=== PATIENT | male | born 1985 | race Caucasian/White ===

== ENCOUNTER 2024-10-19 12:07 | Emergency (ER) | payer BC, SELFPAY ==
[2024-10-19 12:13] VITALS: BP 130/90
[2024-10-19 12:34] LABS: % Basophils 0.3 % (0-2); % Eosinophils 0.4 % (0-6); % Immature Granulocytes 0.3 % (0-0.5); % Lymphocytes 27.3 % (20.5-51.1); % Monocytes 5.9 % (1.7-9.3); % Neutrophils 65.8 % (42.2-75.2); Absolute Monocytes 0.4 10^3/uL (0.1-0.6); Absolute Neutrophils 4.7 10^3/uL (1.4-6.5); Hematocrit 39.9 % (39.0-52.0); Hemoglobin 13.6 g/dL (13.0-18.0); Mean Corp Hgb Conc. 34.1 g/dL (33.0-37.0); Mean Corpuscular Volume 88.1 fL (80.0-94.0); Mean Platelet Volume 13.2 fL (7.4-10.4); Nucleated Red Blood Cells % 0 % (-); Platelet Count 101 10^3/uL (130-400); Red Blood Cell Count 4.53 10^6/uL (4.70-6.10); Red Cell Dist. Width 12.4 % (11.5-14.5); White Blood Cell Count 7.2 10^3/uL (4.8-10.8)
[2024-10-19 12:39] LABS: ALT (SGPT) 39 U/L (0-50); AST (SGOT) 36 U/L (17-59); Albumin 4.7 g/dl (3.5-5.0); Alkaline Phosphatase 39 U/L (38-126); Blood Urea Nitrogen 17 mg/dl (9-20); Calcium 9.4 mg/dl (8.4-10.2); Carbon Dioxide 28 mmol/L (22-30); Chloride 100 mmol/L (98-107); Glucose 115 mg/dl (70-99); Potassium 3.7 mmol/L (3.5-5.1); Sodium 137 mmol/L (135-145); Total Bilirubin 0.3 mg/dl (0.2-1.3); Total Protein 7.1 g/dl (6.3-8.2); eGFR > 60.00
[2024-10-19 12:47] LABS: Troponin I < 0.012 ng/ml
[2024-10-19 13:00] VITALS: BP 125/77
--- NOTE | 2024-10-19 13:33 | ED.GENMED ---
History of Present Illness
General
Chief Complaint: Dizziness
Time Seen by Provider: 10/19/24 13:10
History of Present Illness
History of Present Illness:
39 yo male presents to the Emergency Department for evaluation of sudden onset dizziness and vomiting beginning this afternoon. Reports he was playing ('jumping around') with his son when the symptoms struck. Since that time has had waxing and
waning vertigo/vomiting symptoms. No headaches, fevers, neck pain, chest pain or SOB. Does endorse having several 'colds' in the past month. No speech difficulty or extremity weakness/paresthesias.
Past History
Past History
ED Past Medical History: Other (IBS)
ED Past Surgical History: None
Social History
Tobacco: Former smoker
Alcohol: Occasional
Personal:
Living: with family
Review of Systems
Review of Systems
Allergies reviewed?: Yes
All Other Systems: ROS reviewed and negative except as documented in HPI and ROS
Phy Exam
Physical Exam
Physical Exam:
GEN: Well appearing, NAD, WDWN
HEENT: Oral mucosa moist, no scleral icterus, no nasal congestion
Cardiac: Regular rate and rhythm
Lung: No respiratory distress, no tachypnea
MSK: No gross deformity or injuries
Skin: Good color, no pallor or jaundice, no rashes
Neuro: AO x3; CN II-XII grossly intact. BUE strength 5/5 in all mae, sensation intact and symmetric. BLE strength 5/5 in all mae, sensation intact and symmetric. R beating horizontal nystagmus with head tilt
Psych: Calm, cooperative
Course
Orders/Labs/Results
Orders:
Orders
10/19/24 12:12
Electrocardiogram (*1) Urgent
Reason for Study: Vertigo / Dizzy
EKG- Treatment ONCE
10/19/24 12:13
Complete Blood Count/With Diff Urgent
Comprehensive Metabolic Panel Urgent
Troponin I Urgent
10/19/24 13:39
diazePAM [Valium Injection] 5 mg IV NOW STA
10/19/24 15:16
Dexamethasone Sod Phosphate [Decadron] 10 mg IV NOW STA
Abnormal Lab Results
10/19/24
12:13
RBC 4.53 L 10^6/uL
(4.70-6.10)
Plt Count 101 L 10^3/uL
(130-400)
MPV 13.2 H fL
(7.4-10.4)
Glucose 115 H mg/dl
(70-99)
10/19/24 12:13
10/19/24 12:13
Vital Signs
Initial and Last Documented VS:
Initial Vital Signs
Temp Pulse Resp BP Pulse Ox
97.7 F 63 16 130/90 99
10/19/24 12:13 10/19/24 12:13 10/19/24 12:13 10/19/24 12:13 10/19/24 12:13
Last Documented Vital Signs
Temp Pulse Resp BP Pulse Ox
97.7 F 66 14 128/69 94
10/19/24 12:13 10/19/24 15:00 10/19/24 14:30 10/19/24 15:00 10/19/24 15:00
MDM/Problems Addressed
MDM/Problems Addressed:
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 Symptoms were dramatically improved after diazepam. He did have multiple recent URIs thus we will treat this as a possible viral
induced vestibular neuritis with steroids. No clinical signs concerning for central nervous system lesion
*Critical Care Note
Total Time (30-74mins, 75-104mins- exclusive of procedures): Not Applicable
ED Attending Note
-
Portions of this chart may have been created with voice recognition software.� Occasional wrong word or��sound alike� substitutions may have occurred due to the inherent limitations of voice recognition software.
Discharge Plan
Departure
Patient Disposition: Home (Routine Discharge)
Date of Disposition: 10/19/24
Time of Disposition: 15:16
Patient with high blood pressure during this ER visit?: No
Discharge Problem:
Acute vestibular neuritis
Instructions: Vertigo (a Type of Dizziness) (DC)
Prescriptions:
New
diazepam 5 mg tablet
5 mg PO TID PRN (Reason: vertigo) Qty: 10 0RF
methylprednisolone [Medrol (Darío)] 4 mg tablets,dose pack
See Rx Instructions .ROUTE .COMPLEX Qty: 21 0RF
Rx Instructions:
orally per package directions
Referrals:
Russ Hayden MD [Active] -
Yana Landaverde MD [Family Provider] -
Interventions
Interventions:
*Risk Screen - Suicide Last Done: 10/19/24 12:13
*General Assessment Last Done: 10/19/24 12:13
*Neglect/Abuse Screening Last Done: 10/19/24 12:13
*ED COVID-19 Vaccine History Last Done: 10/19/24 12:13
*Nursing Disposition Last Done: 10/19/24 15:41
ED- Neurological Assessment Last Done: 10/19/24 12:19
ED- Cardiac Assessment Last Done: 10/19/24 12:19
ED Swallowing Screen Last Done: 10/19/24 15:05
Discharge Date and Time
Discharge Date/Time: 10/19/24 15:42
Print Language: YEMENI
[2024-10-19] MEDS: VALIUM INJECTION 5 MG IV (13:47)
[2024-10-19 14:00] VITALS: BP 121/73
[2024-10-19 15:00] VITALS: BP 128/69
[2024-10-19] MEDS: DECADRON 10 MG IV (15:28)
== END 2024-10-19 15:42 | disposition home or self-care (01) ==
LOC: EMR 12:07
PROVIDERS: EMERGENCY PHYSICIAN Emergency Medicine; FAMILY PHYSICIAN Specialist
DX: H93.3X9 Disorders of unspecified acoustic nerve (principal); Z87.891 Personal history of nicotine dependence
CPT/HCPCS: 96374; 96375; 99284; 80053; 84484; 85025; 93005

== ENCOUNTER 2024-11-09 14:04 | Emergency (ER) | payer SELFPAY ==
[2024-11-09 14:08] VITALS: BP 132/84
--- NOTE | 2024-11-09 15:50 | ED.GENMED ---
History of Present Illness
General
Chief Complaint: Head Injury
Source: patient
Exam Limitations: none
Time Seen by Provider: 11/09/24 15:08
Nursing documentation reviewed up to this point in time: agreed with
History of Present Illness
History of Present Illness:
Patient to ED with complaint of headache, vision changes s/p fall. States he fell in hotel bathroom 5 days ago. Hit left forehead. Had an exam with tool specialist, normal exam. Brought self to ED for eval.
Past History
Past History
ED Past Medical History: Other (IBS)
ED Past Surgical History: None
Social History
Tobacco: Former smoker
Alcohol: Occasional
Personal:
Living: with family
Review of Systems
Review of Systems
Allergies reviewed?: Yes
All Other Systems: ROS reviewed and negative except as documented in HPI and ROS
Constitutional: Reports no symptoms
EENT: Reports other (blurred vision)
Respiratory: Reports no symptoms
Cardiac: Reports no symptoms
ABD/GI: Reports no symptoms
: Reports no symptoms
Musculoskeletal: Reports no symptoms
Skin: Reports no symptoms
Neurological: Reports headache
Psychiatric: Reports no symptoms
Phy Exam
General Physical Exam
General Presentation: well appearing and no apparent distress
General age: appears stated age
General Skin: warm and dry
General Habitus: normal
General Mental: alert
ENT Exam
ENT Exam: EOMI, TM's normal and normocephalic
Eye Exam
Eye Exam: PERRL, EOMI, conjunctiva normal and globe normal
[place] Coma Scale
Eye Opening: Spontaneous
Verbal Response: Oriented
Motor Response: Obeys Commands
GCS Total Score: 15
Cranial
Cranial Nerves: normal
EOM (CN3/4/6): intact and other (No nystagmus)
Musculoskeletal Exam
Musculoskeletal Exam: full ROM
Skin Exam
Skin Exam: normal color, warm/dry and no rash
Psychiatric Exam
Psychiatric Exam: normal mood/affect
Course
Orders/Labs/Results
Orders:
Orders
11/09/24 14:16
CT Head W/o Iv Contrast Urgent
Comment:
Reason For Exam: head injury, headache, dizziness
Vital Signs
Initial and Last Documented VS:
Initial Vital Signs
Temp Pulse Resp BP Pulse Ox
98.1 F 80 16 132/84 99
11/09/24 14:08 11/09/24 14:08 11/09/24 14:08 11/09/24 14:08 11/09/24 14:08
Last Documented Vital Signs
Temp Pulse Resp BP Pulse Ox
98.1 F 80 16 132/84 99
11/09/24 14:08 11/09/24 14:08 11/09/24 14:08 11/09/24 14:08 11/09/24 14:08
*Radiology
Radiology exam reviewed: radiology read reviewed
*Pulse Oximetry
Patient hypoxic: no
*Critical Care Note
Total Time (30-74mins, 75-104mins- exclusive of procedures): Not Applicable
ED Attending Note
-
Portions of this chart may have been created with voice recognition software.� Occasional wrong word or��sound alike� substitutions may have occurred due to the inherent limitations of voice recognition software.
Discharge Plan
Departure
Patient Disposition: Home (Routine Discharge)
Date of Disposition: 11/09/24
Time of Disposition: 15:42
Patient with high blood pressure during this ER visit?: No
Condition: Good
Covid-19: Not Applicable
Discharge Problem:
Head injury
Instructions: Head Injury in Adults (DC), Contusion (DC)
Prescriptions:
New
triamcinolone acetonide [Nasacort] 55 mcg aerosol,spray
2 spray intranasal DAILY Qty: 16.9 0RF
No Action
diazepam 5 mg tablet
5 mg PO TID PRN (Reason: vertigo) Qty: 10 0RF
methylprednisolone [Medrol (Darío)] 4 mg tablets,dose pack
See Rx Instructions .ROUTE .COMPLEX Qty: 21 0RF
Rx Instructions:
orally per package directions
Referrals:
Yana Landaverde MD [Family Provider] - Follow up in 2-3 days
Interventions
Interventions:
*Risk Screen - Suicide Last Done: 11/09/24 14:08
*General Assessment Last Done: 11/09/24 14:08
*Neglect/Abuse Screening Last Done: 11/09/24 14:08
*ED COVID-19 Vaccine History Last Done: 11/09/24 14:08
ED- Neurological Assessment Last Done: 11/09/24 14:44
ED-Skin Assessment Last Done: 11/09/24 14:44
Discharge Date and Time
Print Language: YI
== END 2024-11-09 16:11 | disposition home or self-care (01) ==
LOC: EMR 14:04
PROVIDERS: EMERGENCY PHYSICIAN Emergency Medicine; FAMILY PHYSICIAN Specialist
DX: S09.90XA Unspecified injury of head, initial encounter (principal); W19.XXXA Unspecified fall, initial encounter; Z87.891 Personal history of nicotine dependence
CPT/HCPCS: 99284; 70450

== ENCOUNTER 2025-04-20 12:08 | Emergency (ER) | payer BC, SELFPAY ==
[2025-04-20 12:24] VITALS: BP 112/76
[2025-04-20 13:09] LABS: Hematocrit 41.3 % (39.0-52.0); Hemoglobin 13.7 g/dL (13.0-18.0); Mean Corp Hgb Conc. 33.2 g/dL (33.0-37.0); Mean Corpuscular Volume 88.2 fL (80.0-94.0); Nucleated Red Blood Cells % 0 % (-); Platelet Count 107 10^3/uL (130-400); Red Cell Dist. Width 13.0 % (11.5-14.5)
[2025-04-20 13:17] VITALS: BP 127/79
[2025-04-20 13:31] LABS: ALT (SGPT) 41 U/L (0-50); AST (SGOT) 36 U/L (17-59); Albumin 5.0 g/dl (3.5-5.0); Alkaline Phosphatase 41 U/L (38-126); Blood Urea Nitrogen 16 mg/dl (9-20); Calcium 9.5 mg/dl (8.4-10.2); Carbon Dioxide 24 mmol/L (22-30); Chloride 107 mmol/L (98-107); Glucose 96 mg/dl (70-99); Potassium 4.0 mmol/L (3.5-5.1); Sodium 140 mmol/L (135-145); Total Protein 7.5 g/dl (6.3-8.2); eGFR > 60.00
[2025-04-20 13:36] LABS: D-Dimer < 0.27 ug/mlFEU (0.00-0.50)
[2025-04-20 13:42] LABS: Troponin I < 0.012 ng/ml
[2025-04-20 14:00] VITALS: BP 114/72
--- NOTE | 2025-04-20 14:33 | ED.GENMED ---
History of Present Illness
General
Chief Complaint: Chest Pain
Source: patient
Time Seen by Provider: 04/20/25 13:57
History of Present Illness
History of Present Illness:
39yoM with a history of reactive airway disease presenting for evaluation of shortness of breath. Patient reports feeling like he cannot take a deep enough breath and that an elephant is sitting on his chest. He also is having a sharp pain in his
chest which radiates to the back with deep breathing. He is experiencing wheezing, cough, and night sweats. His current episode started 4 days ago. This is his 4th episode since having COVID in 2019. Patient believes he may have scarring on his
lungs from this. 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 He was seen by a chemist water purification about a month ago and was given the initial diagnosis of active airway
disease. He has pulmonary function test about 10 days ago and he was told that his lungs were functioning 74% which improved to 90% after albuterol. Patient is currently using Symbicort, albuterol, and budesonide nebs without improvement. He sees
his chemist water purification in 6 days for follow-up. He has a remote history of smoking but has not smoked for about 14 years.
Past History
Past History
ED Past Medical History: Other (IBS)
ED Past Surgical History: None
Social History
Tobacco: Former smoker
Alcohol: Occasional
Personal:
Living: with family
Phy Exam
General Physical Exam
General Presentation: well appearing and no apparent distress
General Skin: warm and dry
General Habitus: normal
General Mental: alert
ENT Exam
ENT Exam: normocephalic
Cardiovascular Exam
Cardiovascular Exam: regular rate/rhythm, no edema and no murmur
Pulmonary Exam
Pulmonary Exam: lungs clear, no respiratory distress, no rales, no crackles, no rhonchi, no wheezing and other (Lungs clear to auscultation without wheezing. Speaking full sentences without difficulty. Oxygen saturation 98 to 99% during exam.)
Neurological Exam
Neurological Exam: alert
[place] Coma Scale
Eye Opening: Spontaneous
Verbal Response: Oriented
Motor Response: Obeys Commands
GCS Total Score: 15
Skin Exam
Skin Exam: normal color and warm/dry
Psychiatric Exam
Psychiatric Exam: normal mood/affect
Scores
Heart Score for Chest Pain Patients
STEMI patient?: No
History: Slightly or Non-Suspicious
ECG: Normal
Age: </= 45 years
Risk Factors: No Risk Factors
Troponin: </= Normal Limit
Heart Score for Chest Pain Patients: 0
Heart Score Risk: 2.5% MACE over next 6 weeks
Course
Orders/Labs/Results
Orders:
Orders
04/20/25 12:09
Electrocardiogram (*1) Urgent
Reason for Study: Chest Pain
EKG- Treatment ONCE
04/20/25 12:46
Complete Blood Count/With Diff Urgent
Comprehensive Metabolic Panel Urgent
D-Dimer Urgent
Troponin I Stat
04/20/25 14:34
CT Chest W/o Iv Contrast Urgent
Comment:
Reason For Exam: SOB
Abnormal Lab Results
04/20/25
12:46
RBC 4.68 L 10^6/uL
(4.70-6.10)
Plt Count 107 L 10^3/uL
(130-400)
MPV 12.1 H fL
(7.4-10.4)
04/20/25 12:46
04/20/25 12:46
Vital Signs
Initial and Last Documented VS:
Initial Vital Signs
Temp Pulse Resp BP Pulse Ox
98.1 F 93 18 112/76 98
04/20/25 12:24 04/20/25 12:24 04/20/25 12:24 04/20/25 12:24 04/20/25 12:24
Last Documented Vital Signs
Temp Pulse Resp BP Pulse Ox
98.1 F 68 13 117/80 98
04/20/25 12:24 04/20/25 15:45 04/20/25 15:45 04/20/25 15:43 04/20/25 15:45
MDM/Problems Addressed
Differential Diagnosis Includes:
39yoM here with SOB and chest pain x 4 days. Intermittent episodes for a few years. Currently undergoing workup with pulm but hasn't received a formal diagnosis yet. VSS. He is well appearing in no distress. He is speaking in full sentences without
difficulty. Oxygen saturation 98%. Lungs CTA without wheezing. Differential diagnosis includes but is not limited to: Asthma, bronchitis, PE, fibrosis, seasonal allergies
Initial ED plan: Workup initiated in triage. EKG shows NSR without ischemic changes and troponin WNL. D-dimer normal making PE very unlikely. Will proceed with CT chest.
*Pulse Oximetry
SaO2: 97
Oxygen Mode of Delivery: Room air
Patient hypoxic: no (98%)
*EKG
Interpreted by ED Provider?: Yes
EKG Intrepretation Date: 04/20/25
Heart Rate: 69
Rate: normal
Rhythm: sinus
[place]: normal axis
Interval: normal interval
QRS Pattern: normal QRS
Ischemia: no ischemia
*Critical Care Note
Total Time (30-74mins, 75-104mins- exclusive of procedures): Not Applicable
Update Note
Update Note:
CT chest is negative for acute findings. Specifically, there are no infiltrates or evidence of fibrosis. No episodes of hypoxia throughout ED stay. No indication for hospitalization. Patient started on a course of prednisone. He has an
appointment scheduled with pulmonology next week. Patient discharged in stable condition.
ED Attending Note
-
Portions of this chart may have been created with voice recognition software.� Occasional wrong word or��sound alike� substitutions may have occurred due to the inherent limitations of voice recognition software.
Discharge Plan
Departure
Patient Disposition: Home (Routine Discharge)
Date of Disposition: 04/20/25
Time of Disposition: 15:57
Patient with high blood pressure during this ER visit?: No
Discharge Problem:
Shortness of breath
Instructions: Shortness of breath in adults - ED discharge instructions
Prescriptions:
New
prednisone 50 mg tablet
50 mg PO DAILY Qty: 5 0RF
No Action
diazepam 5 mg tablet
5 mg PO TID PRN (Reason: vertigo) Qty: 10 0RF
methylprednisolone [Medrol (Darío)] 4 mg tablets,dose pack
See Rx Instructions .ROUTE .COMPLEX Qty: 21 0RF
Rx Instructions:
orally per package directions
triamcinolone acetonide [Nasacort] 55 mcg aerosol,spray
2 spray intranasal DAILY Qty: 16.9 0RF
Referrals:
Moriah Prabhakar DO [Family Provider, Family Practice]
Activity Restrictions/Additional Instructions:
Take prednisone as prescribed. Continue using albuterol as needed.
Please follow-up with pulmonology next week as scheduled. Return to the ER with any worsening symptoms.
Interventions
Interventions:
*Risk Screen - Suicide Last Done: 04/20/25 12:24
*General Assessment Last Done: 04/20/25 12:24
*Neglect/Abuse Screening Last Done: 04/20/25 12:24
*ED- Fall Risk Assessment Last Done: 04/20/25 13:21
*ED COVID-19 Vaccine History Last Done: 04/20/25 13:21
*Nursing Disposition Last Done: 04/20/25 16:13
ED- Cardiac Assessment Last Done: 04/20/25 13:21
Discharge Date and Time
Discharge Date/Time: 04/20/25 16:15
Print Language: S[place]
[2025-04-20 15:00] VITALS: BP 117/78
[2025-04-20 15:43] VITALS: BP 117/80
== END 2025-04-20 16:15 | disposition home or self-care (01) ==
LOC: EMR 12:08
PROVIDERS: Emergency Medicine; EMERGENCY PHYSICIAN Student in an Organized Health Care Education/Training Program; FAMILY PHYSICIAN Family Medicine
DX: R06.02 Shortness of breath (principal); R07.89 Other chest pain; R61 Generalized hyperhidrosis; J45.901 Unspecified asthma with (acute) exacerbation; K58.9 Irritable bowel syndrome, unspecified; Z86.16 Personal history of COVID-19; Z87.891 Personal history of nicotine dependence; Z88.1 Allergy status to other antibiotic agents; Z88.2 Allergy status to sulfonamides
CPT/HCPCS: 99284; 71250; 80053; 84484; 85025; 85379; 93005

== ENCOUNTER 2025-07-20 20:59 | Emergency (ER) | payer BC, SELFPAY ==
[2025-07-20 21:06] VITALS: BP 134/86
[2025-07-20 21:26] LABS: Hematocrit 38.9 % (39.0-52.0); Hemoglobin 13.3 g/dL (13.0-18.0); Mean Corp Hgb Conc. 34.2 g/dL (33.0-37.0); Mean Corpuscular Volume 86.6 fL (80.0-94.0); Nucleated Red Blood Cells % 0 % (-); Platelet Count 111 10^3/uL (130-400); Red Cell Dist. Width 12.7 % (11.5-14.5)
[2025-07-20 21:44] LABS: ALT (SGPT) 36 U/L (0-50); AST (SGOT) 28 U/L (17-59); Albumin 4.6 g/dl (3.5-5.0); Alkaline Phosphatase 41 U/L (38-126); Blood Urea Nitrogen 19 mg/dl (9-20); Calcium 9.3 mg/dl (8.4-10.2); Carbon Dioxide 28 mmol/L (22-30); Chloride 103 mmol/L (98-107); Glucose 110 mg/dl (70-99); Potassium 3.9 mmol/L (3.5-5.1); Sodium 137 mmol/L (135-145); Total Protein 7.2 g/dl (6.3-8.2); eGFR > 60.00
[2025-07-20 21:54] LABS: Troponin I 0.020 ng/ml
[2025-07-20 23:05] VITALS: BP 105/70; BMI 27.6
[2025-07-21] VITALS: BP 106/66
[2025-07-21 00:49] LABS: Troponin I 0.018 ng/ml
--- NOTE | 2025-07-21 02:09 | ED.GENMED ---
History of Present Illness
General
Chief Complaint: Chest Pain
Source: patient
Exam Limitations: none
Time Seen by Provider: 07/21/25 01:34
Nursing documentation reviewed up to this point in time: agreed with
History of Present Illness
History of Present Illness:
Note:
CHIEF COMPLAINT(S)
Burning chest pain
HISTORY OF PRESENT ILLNESS
The patient is a 40-year-old male who presents with burning chest pain, which began on Saturday. He describes the pain as extending behind the left shoulder blade and notes an unusual accompanying jaw pain. These symptoms initially lasted a couple
of hours on both Saturday and Saturday, during which he experienced hand numbness intermittently. The pain subsided within 15 minutes after chewing ibuprofen. The patient reports no previous cardiac history, but his mother had coronary artery disease,
requiring a quadruple bypass in her 60s.
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 He had a previous evaluation for episodes of rapid heartbeat upon standing quickly, for which he wore a Holter monitor that
indicated temporary palpitations, described as supraventricular tachycardia.
He has not experienced any such symptoms previously but is concerned due to the recurrent nature experienced this week. No recent significant stressors have been noted beyond the typical ones associated with his job.
Currently, he only reports minor jaw discomfort. Approximately at 5:00 PM, he started experiencing familiar symptoms again, which persisted for over an hour, prompting his spouse to insist on an emergency evaluation.
SOCIAL HISTORY
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 He has two children, implying potential familial responsibilities.
PHYSICAL EXAM
General: Alert, no acute distress.
Skin: Warm, dry.
Head: Normocephalic, atraumatic.
Neck: Supple, trachea midline.
Eye, Ears, Nose, Mouth and Throat: Oral mucosa moist.
Cardiovascular: Normal peripheral perfusion, No edema.
Respiratory: Respirations are non-labored.
Gastrointestinal: Abdomen nondistended.
Back: Normal range of motion, Normal alignment.
Musculoskeletal: Normal range of motion, normal strength.
Neurological: Alert and oriented to person, place, time, and situation, No focal neurological deficit observed.
Psychiatric: Cooperative, appropriate mood & affect.
PROBLEM LIST
Acute:
- Burning chest pain with left shoulder and jaw pain
PLAN
1. Evaluate laboratory tests and chest X-ray.
2. Obtain serial cardiac enzyme tests to rule out myocardial infarction.
3. If initial tests are negative, plan for outpatient follow-up with cardiology to explore potential supraventricular tachycardia further.
4. Consider possible gastroesophageal reflux disease given symptom description and differential.
DIFFERENTIAL DIAGNOSIS
The Differential Diagnosis includes, in no particular order and is not limited to:
1. Myocardial ischemia
2. Gastroesophageal reflux disease (GERD)
3. Musculoskeletal pain (costochondritis)
4. Anxiety or panic disorder
5. Supraventricular tachycardia
6. Aortic dissection
7. Pulmonary embolism
8. Pericarditis
9. Pneumothorax
10. Esophageal spasm
Disposition:
SUMMARY OF ENCOUNTER
The patient is a 40-year-old male who presented to the emergency department with concerns of chest pain radiating to the jaw and left arm. The initial occurrence of chest pain was on Saturday, and it was accompanied by jaw pain. The patient
experienced similar pain at 5:30 PM yesterday. The chest X-ray performed revealed no abnormalities. An EKG showed sinus rhythm with a rate of 72, normal intervals and axis, and no evidence of acute ischemia, consistent with his previous EKG from
April 20. Based on these findings, the patient will follow up with cardiology.
DISPOSITION
Discharge.
PLAN
The plan is for the patient to follow up with cardiology to assess the need for additional workup and management.
INDEPENDENT REVIEW OF LABS AND INTERPRETATION OF TESTS
-My independent interpretation of the chest X-ray is normal with no obvious abnormalities noted.
-My independent EKG interpretation shows a sinus rhythm with a rate of 72, normal intervals, normal axis, and no acute ischemic changes when compared with previous findings from April 20.
PATIENT EDUCATION AND COUNSELING
The patient was advised about the importance of following up with a senior benefits analyst for further evaluation to address the chest pain symptoms and to monitor the heart effectively. He was informed to return to the emergency department should his
symptoms worsen or new symptoms emerge.
FOLLOW-UP INSTRUCTIONS
Please follow up with cardiology.
MEDICAL DECISION MAKING
-Number and Complexity of Problems Addressed:
-Burning chest pain with left shoulder and jaw pain.
-Chronic conditions affecting care: No chronic conditions mentioned directly affecting current care.
-DDx list includes: Myocardial ischemia, Gastroesophageal reflux disease (GERD), Musculoskeletal pain (costochondritis), Anxiety or panic disorder, Supraventricular tachycardia, Aortic dissection, Pulmonary embolism, Pericarditis, Pneumothorax,
Esophageal spasm.
-Data:
-Category 1:
-Reviewed and interpreted chest X-ray as normal.
-EKG reviewed showing sinus rhythm with no acute ischemic changes, consistent with prior EKG findings.
-Category 3:
-Planned discussion for follow-up management with a senior benefits analyst upon discharge.
DIAGNOSIS
-Atypical chest pain (ICD-10: R07.89)
- Supraventricular tachycardia (previously noted) (ICD-10: I47.1, reassessed in follow-up with cardiology)
Past History
Past History
ED Past Medical History: Other (IBS)
ED Past Surgical History: None
Social History
Tobacco: Former smoker
Alcohol: Occasional
Personal:
Living: with family
Phy Exam
Physical Exam
Physical Exam:
.
Scores
Heart Score for Chest Pain Patients
STEMI patient?: No
History: Slightly or Non-Suspicious
ECG: Normal
Age: </= 45 years
Risk Factors: 1 or 2 Risk Factors
Troponin: </= Normal Limit
Heart Score for Chest Pain Patients: 1
Heart Score Risk: 2.5% MACE over next 6 weeks
Course
Orders/Labs/Results
Orders:
Orders
07/20/25 21:00
Electrocardiogram (*1) Urgent
Reason for Study: Chest Pain
EKG- Treatment ONCE
07/20/25 21:14
CBC/With Diff [Complete Blood Count/With Diff] Urgent
CMP [Comprehensive Metabolic Panel] Urgent
Troponin I Urgent
07/21/25 00:09
Troponin I Urgent
07/21/25 00:11
CR Chest - 2 Views Urgent
Comment:
Reason For Exam: chest pain
Abnormal Lab Results
07/20/25
21:14
RBC 4.49 L 10^6/uL
(4.70-6.10)
Hct 38.9 L %
(39.0-52.0)
Plt Count 111 L 10^3/uL
(130-400)
MPV 13.0 H fL
(7.4-10.4)
Glucose 110 H mg/dl
(70-99)
07/20/25 21:14
07/20/25 21:14
Vital Signs
Initial and Last Documented VS:
Initial Vital Signs
Temp Pulse Resp BP Pulse Ox
98.7 F 72 15 134/86 98
07/20/25 21:06 07/20/25 21:06 07/20/25 21:06 07/20/25 21:06 07/20/25 21:06
Last Documented Vital Signs
Temp Pulse Resp BP Pulse Ox
98.7 F 70 17 109/74 98
07/20/25 21:06 07/21/25 00:30 07/21/25 00:30 07/21/25 02:21 07/21/25 02:30
*Pulse Oximetry
SaO2: 93
Oxygen Mode of Delivery: Room air
Patient hypoxic: no
*Critical Care Note
Total Time (30-74mins, 75-104mins- exclusive of procedures): Not Applicable
ED Attending Note
-
Portions of this chart may have been created with voice recognition software.� Occasional wrong word or��sound alike� substitutions may have occurred due to the inherent limitations of voice recognition software.
Discharge Plan
Departure
Patient Disposition: Home (Routine Discharge)
Date of Disposition: 07/21/25
Time of Disposition: 02:10
Patient with high blood pressure during this ER visit?: Yes
Condition: Good
Discharge Problem:
Chest pain
Instructions: Chest Pain DCA Follow Up
Prescriptions:
No Action
diazepam 5 mg tablet
5 mg PO TID PRN (Reason: vertigo) Qty: 10 0RF
methylprednisolone [Medrol (Darío)] 4 mg tablets,dose pack
See Rx Instructions .ROUTE .COMPLEX Qty: 21 0RF
Rx Instructions:
orally per package directions
triamcinolone acetonide [Nasacort] 55 mcg aerosol,spray
2 spray intranasal DAILY Qty: 16.9 0RF
prednisone 50 mg tablet
50 mg PO DAILY Qty: 5 0RF
Referrals:
Moriah Prabhakar DO [Family Provider, Family Practice]
Activity Restrictions/Additional Instructions:
Thank You for choosing [facility].
It was a pleasure meeting you and taking part in your care. We hope for your continued healing and wellness.
Please read discharge instructions in their entirety. However, they are for general education and may not describe your exact diagnosis at discharge. Information on your ER visit and medical conditions were discussed with you along with appropriate
follow up information...
If indicated, please take your medications as instructed and indicated on discharge paperwork.
Please schedule a follow up appointment as directed. Call to schedule an appointment
Please return to the emergency department with ANY change in, persisting, or worsening of symptoms. If any of your symptoms do not improve, or persist, or become more severe within 6-12 hours, please return to the emergency department for further
care.
Please return to the emergency department if you develop a headache, neck pain/stiffness, fever greater than 100.4F, chest pain, shortness of breath, persistent nausea, vomiting, slurred speech, difficulty walking, numbness/tingling, weakness, signs
of infection or any other symptoms that are worrisome to you.
If you have any questions or concerns please do not hesitate to call the Hospital at .
Interventions
Interventions:
*Risk Screen - Suicide Last Done: 07/20/25 21:06
*General Assessment Last Done: 07/20/25 21:06
*Neglect/Abuse Screening Last Done: 07/20/25 21:06
*ED- Fall Risk Assessment Last Done: 07/21/25 02:58
*ED COVID-19 Vaccine History Last Done: 07/20/25 21:06
*ED Influenza Vaccine History Last Done: 07/20/25 21:06
*Nursing Disposition Last Done: 07/21/25 02:58
ED- Cardiac Assessment Last Done: 07/21/25 00:11
Discharge Date and Time
Discharge Date/Time: 07/21/25 02:59
Print Language: SOMALI
[2025-07-21 02:21] VITALS: BP 109/74
== END 2025-07-21 02:59 | disposition home or self-care (01) ==
LOC: EMR 20:59
PROVIDERS: Emergency Medicine; EMERGENCY PHYSICIAN Student in an Organized Health Care Education/Training Program; FAMILY PHYSICIAN Family Medicine
DX: R07.89 Other chest pain (principal); Z82.49 Family history of ischemic heart disease and other diseases of the circulatory system; Z87.891 Personal history of nicotine dependence
CPT/HCPCS: 99284; 71046; 80053; 84484; 85025; 93005

== ENCOUNTER → 2025-08-12 10:01 | Outpatient (REF) | payer BC, SELFPAY | LOC: RAD 10:01 | PROVIDERS: ATTENDING PHYSICIAN Internal Medicine Cardiovascular Disease; FAMILY PHYSICIAN Family Medicine | DX: R07.9 Chest pain, unspecified (principal) | CPT/HCPCS: 75574; Q9967 ==

== ENCOUNTER → 2025-08-20 08:47 | Outpatient (REF) | payer BC, SELFPAY | LOC: RCS 08:47 | PROVIDERS: ATTENDING PHYSICIAN Internal Medicine Cardiovascular Disease; FAMILY PHYSICIAN Family Medicine | DX: R07.9 Chest pain, unspecified (principal); N28.0 Ischemia and infarction of kidney | CPT/HCPCS: 93306 ==